=== PATIENT | male | born 1950 | race Caucasian/White ===

== ENCOUNTER 2017-08-18 21:47 | Emergency (ER) | payer MEDICARE, MEDICAID ==
[2017-08-18] MEDS ORDERED: NS 0.9% 1000 ML* 1,000 ML IV SCH (22:30)
[2017-08-18 23:20] LABS: EGFR Non-African American 65.1 (>60)
[2017-08-18 23:27] LABS: ABS Basophils 0.1 10^3/ul (0-0.2); ABS Eosinophils 0.2 10^3/ul (0-0.6); ABS Lymphocytes 0.9 10^3/ul (1.0-4.8); ABS Monocytes 0.5 10^3/ul (0-0.8); ABS Neutrophils 5.6 10^3/ul (1.5-7.7); ABS Nucleated RBC 0 10^3/ul; Eosinophil % 2.5 % (0-6); Hematocrit 44 % (42-52); Hemoglobin 13.9 g/dl (14.0-18.0); Lymphocyte % 12.4 % (25-47); Mean Corpuscular HGB Conc 32 g/dl (31-36); Mean Corpuscular Hemoglobin 21 pg (27-31); Mean Platelet Volume 9 um3 (7.4-10.4); Nucleated Red Blood Cells % 0; Platelet Count 232 10^3/ul (150-450); Red Blood Count 6.69 10^6/ul (4.0-5.4); Red Cell Distribution Width 16 % (10.5-15); White Blood Count 7.2 10^3/ul (3.5-10.8)
[2017-08-18 23:29] LABS: Mean Corpuscular Volume 65 fL (80-94)
[2017-08-19] MEDS ORDERED: Bisacodyl SUPP* 10 MG SUPP PR ONE (00:02)
[2017-08-19] MEDS ORDERED: Iohexol 300* (CONTRAST) 10 ML SDV IV ONE (04:08)
[2017-08-19] MEDS ORDERED: PEG 3000 GI LAVAGE* 1 GALLON PO ONE (04:21)
[2017-08-19] MEDS ORDERED: Magnesium CITRATE* 300 ML BTL PO ONE (04:30)
[2017-08-19 06:58] VITALS: BP 132/66
--- NOTE | 2017-08-19 07:16 | RAD ---
INDICATION: No stool, flatus or vomiting for several days. COMPARISON: There are no prior studies available for comparison. TECHNIQUE: Supine and upright views of the abdomen were obtained. FINDINGS: The small bowel and colon appear nondistended. No free intraperitoneal air is seen. There is a small amount of retained stool. No abnormal calcifications are seen. IMPRESSION: NO EVIDENCE FOR OBSTRUCTION.
--- NOTE | 2017-08-19 08:31 | RAD ---
INDICATION: Abdominal pain. COMPARISON: Comparison is made with a prior abdominal series from August 18, 2017. TECHNIQUE: A CT scan of the abdomen and pelvis was performed with intravenous and oral contrast following intravenous injection of 101 ml of Omnipaque 300 nonionic contrast. Contiguous axial sections were obtained from the lung bases through the symphysis pubis. Images were reconstructed in the coronal and sagittal planes. FINDINGS: There is mild dependent bilateral lower lobe subsegmental atelectasis. No pleural effusion is present. The liver and spleen are normal in size. The liver is decreased in attenuation consistent with fatty infiltration. There is a small area of more focal decreased density in the anterior aspect of the left hepatic lobe suspicious for for more focal fatty infiltration. No calcific gallstones are seen. The pancreas appears to be within normal limits. The adrenal glands appear within normal limits. There is a solid appearing mass arising from the inferior pole of the left kidney along its posterior aspect. This is lobulated margins and measures 2.0 x 2.2 x 1.6 cm in size. There are couple left renal cysts present. No hydronephrosis is present. The urinary bladder appears within normal limits. No bladder wall thickening or intraluminal abnormality is seen. The prostate gland is slightly enlarged measuring 4.9 cm in transverse dimension. The aorta is normal in caliber with mild calcific plaque present. No significant enlarged retroperitoneal lymph nodes are seen. The stomach, small and large bowel appear nondistended. The appendix is not visualized. There is mild sigmoid diverticulosis without evidence for diverticulitis or colitis. There is a periumbilical hernia containing fat. No free intraperitoneal air or fluid is seen. There are chronic bilateral fractures of the pars interarticularis at the L5 level. The vertebra are in normal alignment. IMPRESSION: 1. NO EVIDENCE FOR ACUTE FINDING OR CAUSE FOR THE PATIENT'S ABDOMINAL PAIN. 2. SOLID-APPEARING RIGHT RENAL MASS SUSPICIOUS FOR RENAL CELL CARCINOMA. RECOMMEND UROLOGIC CONSULTATION AND CONSIDER MR IMAGING FOR FURTHER EVALUATION. 3. BILATERAL SPONDYLOLYSIS AT THE L5 LEVEL.
--- NOTE | 2017-09-03 01:20 | ED ---
Yudith Obrien Emily, scribed for Denys Baca MD on 08/18/17 at 2223 . Abdominal Pain/Male - HPI Summary HPI Summary: This patient is a 66 year old M BIBA to [facility] with a chief complaint of diffuse abd pain that began 8 days ago. The patient rates the pain 7/10 in severity. Symptoms aggravated by food. Symptoms alleviated by nothing. Patient reports decreased appetite. Patient denies recent weight loss, melena, hematochezia, fever and chills. Medications reviewed. Allergies reviewed. - History of Current Complaint Chief Complaint: EDAbdPain Stated Complaint: ABD PAIN Hx Obtained From: Patient Onset/Duration: Sudden Onset, Lasting Days, Still Present Timing: Constant Severity Initially: Moderate Severity Currently: Moderate Pain Intensity: 7 Pain Scale Used: 0-10 Numeric Location: Diffuse Aggravating Factor(s): Nothing Alleviating Factor(s): Nothing Associated Signs And Symptoms: Positive: Other - Positive decreased appetite. Negative chills. Negative: Fever - Allergies/Home Medications Allergies/Adverse Reactions: Allergies Allergy/AdvReac Type Severity Reaction Status Date / Time Bee Venom Allergy Swelling Verified 08/19/17 01:44 Home Medications: Home Medications hydrOXYzine HCL TAB* [Atarax 25 MG TAB*] 25 - 50 mg PO BEDTIME PRN 08/19/17 [ History Confirmed 08/19/17] PMH/Surg Hx/FS Hx/Imm Hx Previously Healthy: No Endocrine/Hematology History: Denies: Hx Diabetes Cardiovascular History: Reports: Other Cardiovascular Problems/Disorders - TACHYCARDIA SEVERAL TIMES Denies: Hx Hypercholesterolemia, Hx Hypertension Respiratory History: Denies: Other Respiratory Problems/Disorders Psychiatric History: Reports: Hx Anxiety Infectious Disease History: No Infectious Disease History: Denies: Traveled Outside the [place] in Last 30 Days - Family History Known Family History: Positive: Unknown - Adopted - Social History Occupation: Disabled Lives: Alone Alcohol Use: None Substance Use Type: Reports: None Smoking Status (MU): Never Smoked Tobacco Review of Systems Negative: Fever, Chills Positive: Abdominal Pain, Other - Positive decreased appetite. Negative weight loss, melena, and hematochezia All Other Systems Reviewed And Are Negative: Yes Physical Exam - Summary Physical Exam Summary: Appearance: Well-appearing, Well-nourished Skin: Warm, Dry, No rash Eyes: Normal, PERRL, EOMI, sclera anicteric ENT: Normal Neck: Supple, nontender Respiratory: Clear to auscultation Cardiovascular: S1, S2, no murmur, no rub, no gallop Abdomen: Soft, nontender, no organomegaly Bowel sounds: Present Musculoskeletal: Normal, Strength/ROM Intact, no edema, pulses symmetrical Neurological: Normal, A&Ox3, cranial nerves II-XII WNL, follows commands, gait not tested, sensation intact to pin and light touch Psychiatric: affect normal, behavior appropriate, dressed appropriately, judgment intact Triage Information Reviewed: Yes Vital Signs On Initial Exam: Initial Vitals Temp Pulse Resp BP Pulse Ox 99.3 F 54 16 149/81 100 08/18/17 22:07 08/18/17 22:07 08/18/17 22:07 08/18/17 22:07 08/18/17 22:07 Vital Signs Reviewed: Yes Diagnostics - Vital Signs Vital Signs Temp Pulse Resp BP Pulse Ox 08/18/17 22:07 99.3 F 54 16 149/81 100 - Laboratory Lab Results: Lab Results 08/18/17 08/18/17 Range/Units 22:50 22:50 WBC 7.2 (3.5-10.8) 10^3/ul RBC 6.69 H (4.0-5.4) 10^6/ul Hgb 13.9 L (14.0-18.0) g/dl Hct 44 (42-52) % MCV 65 L (80-94) fL MCH 21 L (27-31) pg MCHC 32 (31-36) g/dl RDW 16 H (10.5-15) % Plt Count 232 (150-450) 10^3/ul MPV 9 (7.4-10.4) um3 Neut % (Auto) 77.7 (38-83) % Lymph % (Auto) 12.4 L (25-47) % [place] % (Auto) 6.3 (1-9) % Eos % (Auto) 2.5 (0-6) % Baso % (Auto) 1.1 (0-2) % Absolute Neuts (auto) 5.6 (1.5-7.7) 10^3/ul Absolute Lymphs (auto) 0.9 L (1.0-4.8) 10^3/ul Absolute Monos (auto) 0.5 (0-0.8) 10^3/ul Absolute Eos (auto) 0.2 (0-0.6) 10^3/ul Absolute Basos (auto) 0.1 (0-0.2) 10^3/ul Absolute Nucleated RBC 0 10^3/ul Nucleated RBC % 0 Anisocytosis 1+ Microcytosis 2+ Sodium 137 (133-145) mmol/L Potassium 4.0 (3.5-5.0) mmol/L Chloride 101 (101-111) mmol/L Carbon Dioxide 24 (22-32) mmol/L Anion Gap 12 H (2-11) mmol/L BUN 11 (6-24) mg/dL Creatinine 1.13 (0.67-1.17) mg/dL Est GFR ( Amer) 83.8 (>60) Est GFR (Non-Af Amer) 65.1 (>60) BUN/Creatinine Ratio 9.7 (8-20) Glucose 89 (70-100) mg/dL Calcium 9.8 (8.6-10.3) mg/dL Total Bilirubin 2.20 H (0.2-1.0) mg/dL AST 14 (13-39) U/L ALT 12 (7-52) U/L Alkaline Phosphatase 57 (34-104) U/L Total Protein 7.4 (6.4-8.9) g/dL Albumin 4.6 (3.2-5.2) g/dL Globulin 2.8 (2-4) g/dL Albumin/Globulin Ratio 1.6 (1-3) Lipase 36 (11.0-82.0) U/L Result Diagrams: 08/18/17 22:50 08/18/17 22:50 Lab Statement: Any lab studies that have been ordered have been reviewed, and results considered in the medical decision making process. - Radiology Abdomen XR Radiology Interpretation Completed By: ED Physician - Abdomen XR reveals, per ED physician, no acute disease. - CT CT Abdomen/Pelvis CT Interpretation Completed By: Radiologist - CT abdomen and pelvis reveals, per radiologist, irregular enhancing exophytic right kidney renal cortical 2.2 cm nonspecific mass suspicious for renal cell carcinoma extends posteriorly off the posterior right kidney. If clinically indicated further evaluation may be needed. ED physician has reviewed this radiology report. - EKG 0050 Cardiac Rate: Bradycardia EKG Rhythm: Sinus Rhythm - 57 BPM EKG Interpretation: LBBB Re-Evaluation - Re-Evaluation First Eval Re-Evaluation Time: 00:03 Change: Unchanged Abdominal Pain Fem Course/Dx - Course Assessment/Plan: This patient is a 66 year old M BIBA to [facility] with a chief complaint of diffuse abd pain that began 8 days ago. Physical Exam Findings. Nml. EKG taken at 0050 reveals sinus bradycardia at 57 BPM with LBBB. Abdomen XR reveals, per ED physician, no acute disease. CT abdomen and pelvis reveals, per radiologist, irregular enhancing exophytic right kidney renal cortical 2.2 cm nonspecific mass suspicious for renal cell carcinoma extends posteriorly off the posterior right kidney. If clinically indicated further evaluation may be needed. Bloodwork obtained. In the ED course the patient was given fluids and. Patient will be discharged with follow up from PCP. The patient is agreeable with this plan. - Diagnoses Provider Diagnoses: Constipation, Right renal mass Discharge - Discharge Plan Condition: Good Disposition: HOME Discharge Disposition Comment: discharged home Patient Education Materials: Constipation (ED) Referrals: Bonifacio Ramirez MD [Primary Care Provider] - Additional Instructions: patient has renal mass on right , needs evaluation by urology The documentation as recorded by the Yudith hernandez Emily accurately reflects the service I personally performed and the decisions made by me, Denys Baca MD.
== END 2017-08-19 06:51 | disposition home or self-care (01) ==
LOC: ED 21:47
DX: N28.89 Other specified disorders of kidney and ureter (principal); R10.9 Unspecified abdominal pain; K59.00 Constipation, unspecified
CPT/HCPCS: 36415; 74019; 74177; 80053; 83690; 85025; 93005; 99283; A9270-GY; Q9967

== ENCOUNTER 2017-08-21 22:03 | Emergency (ER) | payer MEDICARE, MEDICAID ==
[2017-08-22 00:01] VITALS: BP 150/78
== END 2017-08-22 00:01 | disposition left against medical advice (07) ==
LOC: ED 22:03
DX: R10.9 Unspecified abdominal pain (principal); Z53.21 Procedure and treatment not carried out due to patient leaving prior to being seen by health care provider